=== PATIENT | female | born 1990 | race Two or more races ===

== ENCOUNTER 2019-02-07 22:45 | Emergency (ER) | payer BC ==
[~2019-02-07] VITALS: Ht 162.6 cm; Wt 59.0 kg
--- NOTE | 2019-02-07 22:45 | NUR ---
ED Nurse Note: Patient in room 5. Accompanied by partner. EMS advised that patient has consumed a glass of wine and cannabis and had a syncopal episode and x1 episode of vomitting. Also complaining of lower abdominal cramps. A&OX4.
--- NOTE | 2019-02-07 22:52 | Emergency Room Report ---
History of Present Illness General Chief Complaint: Seizure Source: Patient Present Illness HPI This is a 28-year-old female with history of asthma, depression and anxiety. She presents with chief complaint of abdominal pain and syncope. She was sitting down when she had acute onset abdominal pain. She got up to go upstairs to lay down. She says she felt very nauseous and then had a syncopal episode. No trauma. No vomiting. Pain is to the lower pelvic area. Better now. Never had this problem before. Denies any fever chills but denies any palpitation. Pain came first and then nausea and then syncope. Allergies: Coded Allergies: No Known Allergies (Unverified , 02/07/19) Patient History Past Medical History: see triage record, old chart reviewed, psych hx Past Surgical History: none Pertinent Family History: none Social History: Denies: smoking Last Menstrual Period: 01/13/19 Now: No Immunizations: other Reviewed Nursing Documentation: PMH: Agreed; PSxH: Agreed Nursing Documentation-PMH Past Medical History: No History, Except For Hx Asthma: Yes History Of Psychiatric Problem: Yes - DEPRESSION, ANXIETY Review of Systems Eye: Denies: eye pain, blurred vision ENT: Denies: ear pain, nose congestion, throat swelling Respiratory: Denies: cough, shortness of breath Cardiovascular: Denies: chest pain, palpitations Gastrointestinal: Reports: abdominal pain, nausea; Denies: diarrhea, vomiting Musculoskeletal: Denies: back pain, joint pain Skin: Denies: rash Neurological: Denies: headache, numbness Endocrine: Denies: increased thirst, increased urine Hematologic/Lymphatic: Denies: easy bruising All Other Systems: negative except mentioned in HPI Physical Exam Vital Signs Date Time Temp Pulse Resp B/P (MAP) Pulse Ox O2 Delivery O2 Flow Rate FiO2 02/07/19 22:40 98.4 87 16 109/67 (81) 99 Room Air Vitals normal Sp02 EP Interpretation: reviewed, normal General Appearance: well appearing, no apparent distress, alert Head: normocephalic, atraumatic Eyes: bilateral eye PERRL, bilateral eye EOMI ENT: hearing grossly normal, normal pharynx Neck: full range of motion, supple, no meningismus Respiratory: chest non-tender, lungs clear, normal breath sounds Cardiovascular #1: regular rate, rhythm, no murmur Gastrointestinal: normal bowel sounds, no mass, no organomegaly, no bruit, non- distended, tenderness - Mild lower quadrant tenderness Musculoskeletal: back normal, gait/station normal, normal range of motion Psychiatric: mood/affect normal Medical Decision Making Diagnostic Impression: Primary Impression: Syncope Qualified Codes: R55 - Syncope and collapse Additional Impressions: Abdominal pain Qualified Codes: R10.32 - Left lower quadrant pain Left ovarian cyst ER Course Presents with syncope secondary to acute onset of abdominal pain. CT scans unremarkable. Did show a 2.8 cm left adnexal cyst. After pain medication pain seemed to localize the left lower quadrant. Because of continued pain, will get ultrasound to rule out torsion. No evidence of ectopic. No evidence of PID , appendicitis or acute abdomen. No evidence of any obstruction. Ultrasound confirmed that she has a left ovarian cysts that ruptured. No evidence of an acute abdomen. No evidence of any torsion. She has no discharge to indicate PID Lab Results Impression labs with mild anemia CT/MRI/US Diagnostic Results CT/MRI/US Diagnostic Results #1: Imaging Test Ordered: CT abdomen and pelvis Impression Read by radiologist. 2.8 cm left adnexal cyst. Appendix normal. CT/MRI/US Diagnostic Results #2: Imaging Test Ordered: Pelvic ultrasound Impression Read by radiologist. Involuted left ovarian cyst. Mild free fluid. Last Vital Signs Date Time Temp Pulse Resp B/P (MAP) Pulse Ox O2 Delivery O2 Flow Rate FiO2 02/07/19 22:40 98.4 87 16 109/67 (81) 99 Room Air Status: improved Disposition: HOME, SELF-CARE Condition: Stable Scripts Ibuprofen* (MOTRIN*) 600 Mg Tablet 600 MG ORAL THREE TIMES A DAY, #30 TAB 0 Refills Prov: Monroe Holden MD 02/08/19 Hydrocodone/Acetaminophen 5-325* (HYDROCODONE/ACETAMINOPHEN 5-325*) 1 Each Tablet 1 TAB ORAL Q6H PRN for For Pain, #15 TAB 0 Refills Prov: Monroe Holden MD 02/08/19 Additional Instructions: Follow-up with your doctor in 7 days. Return if symptoms worsen. Monroe Holden MD Feb 07, 2019 22:52
[2019-02-07] MEDS ORDERED: Ketorolac 30mg Inj IV ONE (23:00)
[2019-02-07 23:31] LABS: BASOPHILS % (AUTO) 1.3 % (0.0-2.0); EOSINOPHILS % (AUTO) 0.5 % (0.0-3.0); HEMATOCRIT 33.1 % (37.0-47.0); HEMOGLOBIN 11.5 G/DL (12.0-16.0); LYMPHOCYTES % (AUTO) 46.2 % (20.0-45.0); MEAN CORPUSCULAR VOLUME 86 FL (80-99); MONOCYTES % (AUTO) 11.6 % (1.0-10.0); NEUTROPHILS % (AUTO) 40.5 % (45.0-75.0); PLATELET COUNT 258 K/UL (150-450); RED BLOOD COUNT 3.83 M/UL (4.20-5.40); RED CELL DISTRIBUTION WIDTH 11.3 % (11.6-14.8); WHITE BLOOD COUNT 4.9 K/UL (4.8-10.8)
[2019-02-07 23:51] VITALS: BP 117/68
[2019-02-07 23:54] LABS: ALANINE AMINOTRANSFERASE 15 U/L (12-78); ALBUMIN 3.7 G/DL (3.4-5.0); ALBUMIN/GLOBULIN RATIO 1.2 (1.0-2.7); ALKALINE PHOSPHATASE 47 U/L (46-116); ANION GAP 10 mmol/L (5-15); ASPARTATE AMINO TRANSFERASE 13 U/L (15-37); BILIRUBIN,TOTAL 0.3 MG/DL (0.2-1.0); BLOOD UREA NITROGEN 11 mg/dL (7-18); CALCIUM 8.8 MG/DL (8.5-10.1); CARBON DIOXIDE 26 MMOL/L (21-32); CHLORIDE 105 MMOL/L (98-107); CREATININE 0.8 MG/DL (0.55-1.30); POTASSIUM 3.5 MMOL/L (3.5-5.1); SODIUM 140 MMOL/L (136-145)
[2019-02-08 00:24] LABS: APPEARANCE,URINE CLEAR; BILIRUBIN, URINE NEGATIVE (NEGATIVE); COLOR,URINE PALE YELLOW; GLUCOSE, URINE (UA) NEGATIVE (NEGATIVE); KETONES,URINE NEGATIVE (NEGATIVE); LEUKOCYTE ESTERASE ,URINE NEGATIVE (NEGATIVE); NITRITE,URINE NEGATIVE (NEGATIVE); PH,URINE 7 (4.5-8.0); PROTEIN,URINE NEGATIVE (NEGATIVE); UROBILINOGEN,URINE NORMAL MG/DL (0.0-1.0)
--- NOTE | 2019-02-08 00:42 | NUR ---
ED Nurse Note: Patient transferred to CT.
[2019-02-08] MEDS ORDERED: Morphine Sulfate 4mg/ml Inj (IV USE ONLY) IVP ONE (01:00)
[2019-02-08 01:18] VITALS: BP 111/71
--- NOTE | 2019-02-08 01:19 | NUR ---
ED Nurse Note: Further analgesia given as prescribed for pain in lower abdomen.
--- NOTE | 2019-02-08 01:36 | Diagnostic Imaging Report ---
Indication: Right-sided abdominal pain for one day Technique: Spiral acquisitions obtained through the abdomen and pelvis. No oral contrast utilized, per emergency room physician request No IV contrast utilized, per referring physician request.. Multiplanar reconstructions were generated. Total dose length product 1180 mGycm. CTDIvol(s) 21 mGy. Dose reduction achieved using automated exposure control Comparison: None Findings: The appendix is normal. There is a moderate amount of retained fecal material within the colon. Unremarkable distal esophagus, stomach, duodenum. No free or loculated intraperitoneal gas or fluid. No small bowel distention. Lack of IV contrast limits assessment of the solid organs. The liver, gallbladder, bile ducts, pancreas, spleen, adrenals, kidneys are all unremarkable. No pelvic mass or adenopathy. No retroperitoneal or mesenteric mass or adenopathy. Unremarkable uterus and ovaries. The included lung bases are clear. The bones are unremarkable. Impression: Negative This agrees with the preliminary interpretation provided overnight by [facility]. The CT scanner at [facility] is accredited by the [employer] and the scans are performed using protocols designed to limit radiation exposure to as low as reasonably achievable to attain images of sufficient resolution adequate for diagnostic evaluation.
--- NOTE | 2019-02-08 03:16 | NUR ---
ED Nurse Note: Pt taken for US via w/c.
[2019-02-08 03:20] VITALS: BP 118/74
--- NOTE | 2019-02-08 03:48 | NUR ---
ED Nurse Note: Came back from US.
[2019-02-08 04:00] VITALS: BP 109/68
--- NOTE | 2019-02-08 04:00 | NUR ---
ER DISCHARGE NOTE: Patient is cleared to be discharged per ERMD, pt is aox4, on room air, with stable vital signs. pt was given dc and prescription instructions, pt was able to verbalize understanding, pt id band and iv site removed without complications. pt is able to ambulate with steady gait. pt took all belongings.
[2019-02-08] MEDS ORDERED: IBUPROFEN600 MG ORAL (04:01)
[2019-02-08] MEDS ORDERED: HYDROCODON-ACE1 EA15 ORAL (04:01)
--- NOTE | 2019-02-08 04:10 | Diagnostic Imaging Report ---
Indication: Pelvic pain x1 day, negative urine test Technique: Transabdominal images only. No transvaginal images obtained, reason not stated. Doppler interrogation of the bilateral ovaries Comparison: Abdomen pelvis CT performed 3 hours earlier Findings: Uterus measures 7.5 cm length by 3.7 cm AP. The left ovary measures 3 cm length. The right ovary measures 3.2 cm length. Both ovaries demonstrate normal blood flow. No ovarian or adnexal mass demonstrated. Small amount of free fluid is seen in the cul-de-sac. There is questionably a collapsed left ovarian cyst. Impression: Limited exam, due to lack of endovaginal images Questionable collapsed left ovarian cyst Free cul-de-sac fluid, possibly related to the above This agrees with the preliminary interpretation provided overnight by [facility].
== END 2019-02-08 04:00 | disposition home or self-care (01) ==
LOC: EDBD 22:45 → EMR 23:00
DX: R55 Syncope and collapse (principal); N83.202 Unspecified ovarian cyst, left side; R10.32 Left lower quadrant pain; F32.9 Major depressive disorder, single episode, unspecified; F41.9 Anxiety disorder, unspecified; J45.909 Unspecified asthma, uncomplicated
CPT/HCPCS: 36415; 74176; 76856; 80053; 81003; 81025; 83690; 84703; 85025; 96361; 96374; 96375; 99284; J1885; J2270; J2405; J7030